=== PATIENT | male | born 1945 | race Hispanic/Latino ===

== ENCOUNTER 2017-12-02 02:38 | Emergency (ER) | payer OTHER ==
[2017-12-02] MEDS ORDERED: TETANUS/DIPHTHERIA TOXOID [ADULT] 0.5 ML VIAL IM ONE (04:15)
== END 2017-12-02 04:30 | disposition home or self-care (01) ==
LOC: EDH 02:38
DX: S61.451A Open bite of right hand, initial encounter (principal); E11.9 Type 2 diabetes mellitus without complications; E78.5 Hyperlipidemia, unspecified; Z88.0 Allergy status to penicillin; W50.3XXA Accidental bite by another person, initial encounter; Y93.89 Activity, other specified; Y92.098 Other place in other non-institutional residence as the place of occurrence of the external cause; Y99.8 Other external cause status
CPT/HCPCS: 90471; 90714

== ENCOUNTER 2023-08-16 08:49 | Day surgery (SDC) | payer OTHER ==
[2023-08-10 16:14] VITALS: BP 178/82; PULSE 57; RESP 20
[2023-08-10 16:15] LABS: BASOPHILS # (AUTO) 0.05 K/uL (0.00-0.20); BASOPHILS % (AUTO) 0.6 % (0.0-5.0); EOSINOPHILS # (AUTO) 0.19 K/uL (0.00-0.70); EOSINOPHILS % (AUTO) 2.2 % (0.0-8.0); HEMATOCRIT 37.2 % (42-54); IMMATURE GRANULOCYTE ABSOLUTE 0.03 K/uL (0-1); LYMPHOCYTES # (AUTO) 1.7 K/uL (1.0-4.8); LYMPHOCYTES % (AUTO) 19.7 % (21.0-51.0); MEAN CORPUSCULAR HEMOGLOBIN 29.5 pg (27.0-33.0); MEAN CORPUSCULAR HGB CONC 33.3 g/dL (32.0-36.0); MEAN CORPUSCULAR VOLUME 88.4 fL (79-99); MONOCYTES # (AUTO) 0.6 K/uL (0.1-1.0); MONOCYTES % (AUTO) 7.3 % (3.0-13.0); NEUTROPHILS # (AUTO) 6.1 K/uL (1.8-7.7); NEUTROPHILS % (AUTO) 69.9 % (40.0-77.0); PLATELET COUNT (AUTO) 190 K/uL (130-400); RED BLOOD CELL COUNT(AUTO) 4.21 MIL/uL (4.50-6.20); RED CELL DISTRIBUTION WIDTH 14.5 % (11.0-15.5); WHITE BLOOD COUNT (AUTO) 8.7 K/uL (4.8-10.8)
[2023-08-10 16:24] LABS: CREATININE 1.1 mg/dL (0.5-1.5); POTASSIUM 4.2 mmol/L (3.5-5.1)
[2023-08-10 16:25] LABS: INR 0.94 (0.85-1.15); PROTHROMBIN TIME 10.9 SEC (9.6-11.6)
[2023-08-10 16:27] LABS: PARTIAL THROMBOPLASTIN TIME 29.4 SEC (26.3-35.5)
[~2023-08-16] VITALS: Ht 162.6 cm; Wt 67.1 kg
[2023-08-16] VITALS (17 sets, daily range): BP systolic 142–167; BP diastolic 76–95; PULSE 76–97; RESP 16–22
[~2023-08-16 08:49] MED LIST: ATOR40TA71 PO; DONE10TA43 PO; GLIP5TAB15 PO; LEVO25CA4 PO; METO25TA6 PO; PANT40TA54 PO; PRED5DRO25 OS
[2023-08-16] MEDS ORDERED: 0.9%NACL 1000ML 1,000 ML IV ONE (09:44)
[2023-08-16] MEDS ORDERED: CEFAZOLIN SODIUM 2 GM VIAL ONE (09:44)
[2023-08-16] MEDS ORDERED: CLINDAMYCIN IVPB 900MG/50ML 50 ML IV ONE (11:09)
[2023-08-16] MEDS ORDERED: LIDOCAINE PF 100MG/5ML (2%) SYRINGE 5ML ONE (11:16)
[2023-08-16] MEDS ORDERED: PROPOFOL 10 MG/ML 20ML VIAL IV ONE (11:17)
[2023-08-16] MEDS ORDERED: ROCURONIUM 10MG/1ML SYR 10 MG/ML ML ONE (11:18)
[2023-08-16] MEDS ORDERED: MIDAZOLAM HCL 1 MG/ML 2ML VIAL ONE (11:19)
[2023-08-16] MEDS ORDERED: ONDANSETRON 4MG INJ ONE (11:20)
[2023-08-16] MEDS ORDERED: FENTANYL CITRATE PF 50 MCG/1 ML 2ML VIAL ONE ×2 (11:20→12:42)
[2023-08-16] MEDS ORDERED: ROPIVACAINE 0.5% 5MG/ML 30ML IJ ONE (11:25)
[2023-08-16] MEDS ORDERED: DEXAMETHASONE SOD PHOSPHATE 10MG/ML 1ML VIAL ONE (11:31)
[2023-08-16] MEDS ORDERED: EPHEDRINE SULFATE 50 MG/ML AMPULE ONE (11:41)
[2023-08-16] MEDS ORDERED: GLYCOPYRROLATE 1 MG/5 ML SYRINGE ONE (12:36)
[2023-08-16] MEDS ORDERED: NEOSTIGMINE 5MG/5ML SYR IV ONE (12:36)
[2023-08-16] MEDS ORDERED: GABA-529 PO (12:39)
[2023-08-16] MEDS ORDERED: DOCU-116 PO (12:39)
[2023-08-16] MEDS ORDERED: METH-662 PO (12:39)
== END 2023-08-16 14:45 | disposition home or self-care (01) ==
LOC: DAH 08:49
PROVIDERS: ATTEND Surgery
DX: K40.90 Unilateral inguinal hernia, without obstruction or gangrene, not specified as recurrent (principal); N43.2 Other hydrocele; I10 Essential (primary) hypertension; I25.10 Atherosclerotic heart disease of native coronary artery without angina pectoris; K21.9 Gastro-esophageal reflux disease without esophagitis; E11.9 Type 2 diabetes mellitus without complications; E03.9 Hypothyroidism, unspecified; E78.00 Pure hypercholesterolemia, unspecified; Z79.01 Long term (current) use of anticoagulants; Z79.899 Other long term (current) drug therapy; Z88.0 Allergy status to penicillin; Z88.8 Allergy status to other drugs, medicaments and biological substances; Z83.3 Family history of diabetes mellitus
CPT/HCPCS: 80048; 85025; 85610; 85730; 36415; 93005; 49505; 55040; 64425; 82948 ×2; 76942; A6260; A4663; J7030 ×2; A4452; A4344; J3010 ×2; J3490 ×3; J1100; J2710; J2001; J2250; J2704; J2405; J2795; A4649; A4215; A4223; A4222; A4221; A4600; J0690